=== PATIENT | female | born 1990 | race Caucasian/White ===

== ENCOUNTER → 2021-03-11 | Outpatient (CLI) | payer OTHER ==
[~2021-03-11] MED LIST: BENTYL 20MG TAB20 MG PO; ZOFRAN ODT 4 MG4 MG PO
== END ==
LOC: HEART 5 14:10
DX: R42 Dizziness and giddiness (principal)

== ENCOUNTER → 2021-12-21 | Outpatient (CLI) | payer OTHER | LOC: RAD 15:29 | DX: R10.11 Right upper quadrant pain (principal) | CPT/HCPCS: 74018 ==